=== PATIENT | male | born 1990 ===

== ENCOUNTER 2022-05-09 06:25 | Day surgery (SDC) | payer OTHER ==
[~2022-05-09] VITALS: Ht 180.3 cm; Wt 89.8 kg
[2022-05-09] MEDS ORDERED: TORADOL PO (09:33)
[2022-05-09 10:28] VITALS: BP 114/78
== END 2022-05-09 10:20 | disposition home or self-care (01) | DRG 355 ==
LOC: ORM 06:25
PROVIDERS: ATTEND Surgery
PROC: 0WUF0JZ Supplement Abdominal Wall with Synthetic Substitute, Open Approach (ICD-10-PCS; principal; 2022-05-09)
DX: K42.9 Umbilical hernia without obstruction or gangrene (principal)
CPT/HCPCS: C9290; J0131